=== PATIENT | male | born 1995 | race African-American/Black ===

== ENCOUNTER 2020-07-12 01:04 | Emergency (ER) | payer SELFPAY ==
[~2020-07-12] VITALS: Ht 167.6 cm; Wt 60.0 kg
[2020-07-12 02:08] VITALS: BP 121/75
== END 2020-07-12 02:34 | disposition home or self-care (01) ==
LOC: ER 01:33
DX: F12.90 Cannabis use, unspecified, uncomplicated (principal); I49.9 Cardiac arrhythmia, unspecified
CPT/HCPCS: 93005; 99283

== ENCOUNTER 2020-07-25 01:39 | Emergency (ER) | payer SELFPAY ==
[~2020-07-25] VITALS: Ht 177.8 cm; Wt 64.0 kg
[2020-07-25] MEDS ORDERED: HYDROXYZINE 25MG TABLET PO ONE (02:15)
[2020-07-25 02:18] VITALS: BP 128/75
== END 2020-07-25 02:19 | disposition home or self-care (01) ==
LOC: ER 01:39
DX: F12.180 Cannabis abuse with cannabis-induced anxiety disorder (principal); R03.0 Elevated blood-pressure reading, without diagnosis of hypertension
CPT/HCPCS: 93005; 99283